=== PATIENT | male | born 1995 ===

== ENCOUNTER 2022-09-24 19:44 | Emergency (ER) | payer OTHER ==
[2022-09-24] MEDS ORDERED: Lactated Ringers 1,000 ML IV ONE (19:47)
[2022-09-24] MEDS ORDERED: Iopamidol 755 MG/ML 500 ML Multipack Bottle IVPUSH ONE (19:57)
[2022-09-24 21:08] LABS: CARBON DIOXIDE,CO2 23.4 mmol/L (21.0-32.0); POTASSIUM,K 3.6 mmol/L (3.5-5.1)
[2022-09-24] MEDS ORDERED: Diphtheria,Pertussis(Acell),Tetanus Vaccine 0.5 ML Syringe IM ONE (21:37)
== END 2022-09-24 21:45 ==
LOC: MW.ED 19:44
DX: S09.90XA Unspecified injury of head, initial encounter (principal); R04.0 Epistaxis; F10.929 Alcohol use, unspecified with intoxication, unspecified; Y90.8 Blood alcohol level of 240 mg/100 ml or more; V89.2XXA Person injured in unspecified motor-vehicle accident, traffic, initial encounter; Y92.410 Unspecified street and highway as the place of occurrence of the external cause
CPT/HCPCS: 36415; 70450; 70486; 71260; 72125; 72128; 72131; 74177; 80053; 80307; 82550; 83735; 84484; 85025; 85610; 96360; 99284; J7120; Q9967; 99285